=== PATIENT | female | born 1960 | race Caucasian/White ===

== ENCOUNTER 2017-11-15 08:27 | Outpatient (CLI) | payer OTHER ==
[~2017-11-15 08:27] MED LIST: CATAFLAM50 MG; GABAPENTIN300 MG; LIPITOR20 MG; ULTRAM50 MG
== END 2017-11-15 08:30 | disposition home or self-care (01) ==
LOC: SONOGRAMA 08:27
DX: E04.1 Nontoxic single thyroid nodule (principal)

== ENCOUNTER 2021-10-13 10:39 | Outpatient (CLI) | payer OTHER | END 2021-10-13 10:41 | disposition home or self-care (01) | LOC: SONOGRAMA 10:39 | PROVIDERS: ATTEND Pathology Anatomic Pathology & Clinical Pathology | DX: E04.2 Nontoxic multinodular goiter (principal) ==

== ENCOUNTER 2025-04-30 10:30 | Outpatient (CLI) | payer OTHER | END 2025-04-30 10:32 | disposition home or self-care (01) | LOC: SONOGRAMA 10:30 | PROVIDERS: ATTEND Pathology Anatomic Pathology & Clinical Pathology | DX: D34 Benign neoplasm of thyroid gland (principal); E07.89 Other specified disorders of thyroid; E04.2 Nontoxic multinodular goiter ==